=== PATIENT | female | born 2000 | race Caucasian/White ===

== ENCOUNTER 2023-05-09 17:08 | Emergency (ER) | payer BC ==
[~2023-05-09] VITALS: Ht 167.6 cm; Wt 65.8 kg
[2023-05-09 17:17] VITALS: BP 137/84; PULSE 88; RESP 16; TEMP 98; O2SAT 100
[2023-05-09 18:01] VITALS: O2SAT 100
[2023-05-09 18:18] VITALS: BP 115/70; PULSE 83; RESP 19; TEMP 98; O2SAT 100
== END 2023-05-09 20:00 | disposition home or self-care (01) ==
LOC: MED 17:08
DX: R51.9 Headache, unspecified (principal); Z79.899 Other long term (current) drug therapy
CPT/HCPCS: 70450; 99284